=== PATIENT | male | born 1950 | race Caucasian/White ===

== ENCOUNTER 2016-09-02 09:07 | Emergency (ER) | payer MEDICARE, OTHER ==
[2016-09-02 09:22] VITALS: BP 149/83
[2016-09-02] MEDS ORDERED: KETOROLAC TROMETHAMINE 30 MG/ML VIAL IM ONE (11:01)
[2016-09-02] MEDS ORDERED: KETOROLAC TROMETHAMINE 30 MG/ML VIAL ONE (11:02)
[2016-09-02] MEDS ORDERED: ACETAMINOPHEN 325 MG TABLET ONE (11:08)
[2016-09-02] MEDS ORDERED: ACETAMINOPHEN 325 MG TABLET PO ONE (11:11)
--- NOTE | 2016-09-02 11:26 | ERNOTE ---
Upper Extremity HPI - Narrative Date of Service: 09/02/16 - General Time Seen by Provider: 09/02/16 10:10 Source: patient Exam Limitations: no limitations - Immun/Allergies/Home Medications Immunizations: IMMUNIZATION HX Immunizations Up to Date Yes History of Influenza Vaccine Yes Hx Pneumococcal Vaccination Yes Allergies/Adverse Reactions: Allergies Allergy/AdvReac Type Severity Reaction Status Date / Time Tetanus Vaccines & Toxoid Allergy Severe Swelling Verified 09/02/16 09:28 of Throat Home Medications: HOME MEDICATIONS Amitriptyline HCl [Elavil] 10 mg PO ACHS 09/02/16 [Last Taken Unknown] Diphenoxylate HCl/Atropine [Lomotil Tablet] 1 each PO TID 09/02/16 [Last Taken Unknown] Furosemide [Lasix] 40 mg PO DAILY 09/02/16 [Last Taken Unknown] Levothyroxine Sodium [Synthroid] 50 mcg PO DAILY 09/02/16 [Last Taken Unknown] Lisinopril [Zestril] 2.5 mg PO DAILY 09/02/16 [Last Taken Unknown] Pantoprazole Sodium [Protonix] 40 mg PO BID 09/02/16 [Last Taken Unknown] Pantoprazole Sodium [Protonix] 40 mg PO DAILY 09/02/16 [Last Taken Unknown] Sotalol HCl [Betapace] 120 mg PO BID 09/02/16 [Last Taken Unknown] Warfarin Sodium [Coumadin] 2.5 mg PO SUTUTHSA 09/02/16 [Last Taken Unknown] Warfarin Sodium [Coumadin] 5 mg PO MOWEFR 09/02/16 [Last Taken Unknown] Zolpidem Tartrate [Ambien] 5 mg PO HS 09/02/16 [Last Taken Unknown] metFORMIN HCL [Glucophage] 1,000 mg PO BID 09/02/16 [Last Taken Unknown] - History of Present Illness Narrative: multiple right shoulder dislocations. Recent Xray is negative from 08/31/2015 however pt has pain in right shoulder Review of Systems - Review of Systems Constitutional: Present: no symptoms reported Respiratory: Present: no symptoms reported Cardiology: Present: no symptoms reported - Patient's Past Medical History Patient History - Medical: Diabetes Type 2, GERD, Hypothyroidism Patient History - Cardiac/Respiratory: Bronchitis, Hypertension Patient History - Cancer: No Hx of Cancer Patient History - Surgical Procedures: Cholecystectomy Patient History - Other: None - Social History Living Situations: home Smoking Status: Former smoker Have you smoked in the past 12 months: No - Immunizations Immunizations Up to Date: Yes Hx Pneumococcal Vaccination: Yes History of Influenza Vaccine: Yes Physical Exam - Physical Exam General Appearance: Present: wd/wn, alert, no apparent distress Ears, Nose, Throat: Present: normal ENT inspection, hearing grossly normal Neck: Present: normal inspection, nontender Respiratory: Present: no respiratory distress, normal breath sounds, no accessory muscle use, chest nontender, lungs clear Cardiovascular/Chest: Present: regular rate, rhythm, no murmur, normal peripheral pulses Extremity Exam: Present: other - There is a visible superficial bursa which is ballotable on the patient's right shoulder. It is tense and tender. ED Progress - Vital Signs Patient's Vital Signs:: I have reviewed the patient's vital signs. Vital Signs: Vital Signs 09/02/16 09:18 Temperature 36.1 C L Pulse Rate 93 Respiratory 16 Rate Blood Pressure 149/83 O2 Sat by Pulse 96 Oximetry - Progress/Reassessment Chief Complaint: Shoulder Injury/Pain Plan - Plan Plan: Will make appointment for pt to see ortho tomorrow. Will place in sling and offer Tylenol as pt is on anticoagulants. Departure Clinical Impression: Bursitis of right shoulder - Departure Disposition: Home self-care Condition: Fair Instructions: Bursitis, [id number] Additional Instructions: Go see ortho tomorrow at 9:30 am please
== END 2016-09-02 11:25 | disposition home or self-care (01) ==
LOC: ER 09:07
DX: M75.51 Bursitis of right shoulder (principal); Z87.891 Personal history of nicotine dependence

== ENCOUNTER 2016-09-04 10:50 | Emergency (ER) | payer MEDICARE, OTHER ==
[2016-09-04 11:11] VITALS: BP 132/70
[2016-09-04] MEDS ORDERED: TRIAMCINOLONE ACETONIDE 40 MG/ML VIAL IJ ONE (11:30)
[2016-09-04] MEDS ORDERED: LIDOCAINE HCL/EPINEPHRINE 30 ML VIAL IJ ONE ×2 (11:32→11:49)
--- NOTE | 2016-09-04 11:35 | ERNOTE ---
Upper Extremity HPI - Narrative Date of Service: 09/04/16 - General Extremities Pain Location: shoulder: right Time Seen by Provider: 09/04/16 11:21 Source: patient Exam Limitations: no limitations - Immun/Allergies/Home Medications Immunizations: IMMUNIZATION HX Immunizations Up to Date Yes History of Influenza Vaccine Yes Hx Pneumococcal Vaccination Yes Allergies/Adverse Reactions: Allergies Allergy/AdvReac Type Severity Reaction Status Date / Time Tetanus Vaccines & Toxoid Allergy Severe Swelling Verified 09/04/16 11:11 of Throat Penicillins Allergy Verified 09/04/16 11:11 Home Medications: HOME MEDICATIONS Amitriptyline HCl [Elavil] 10 mg PO ACHS 09/02/16 [Last Taken Unknown] Diphenoxylate HCl/Atropine [Lomotil Tablet] 1 each PO TID 09/02/16 [Last Taken Unknown] Furosemide [Lasix] 40 mg PO DAILY 09/02/16 [Last Taken Unknown] Levothyroxine Sodium [Synthroid] 50 mcg PO DAILY 09/02/16 [Last Taken Unknown] Lisinopril [Zestril] 2.5 mg PO DAILY 09/02/16 [Last Taken Unknown] Pantoprazole Sodium [Protonix] 40 mg PO BID 09/02/16 [Last Taken Unknown] Pantoprazole Sodium [Protonix] 40 mg PO DAILY 09/02/16 [Last Taken Unknown] Sotalol HCl [Betapace] 120 mg PO BID 09/02/16 [Last Taken Unknown] Warfarin Sodium [Coumadin] 2.5 mg PO SUTUTHSA 09/02/16 [Last Taken Unknown] Warfarin Sodium [Coumadin] 5 mg PO MOWEFR 09/02/16 [Last Taken Unknown] Zolpidem Tartrate [Ambien] 5 mg PO HS 09/02/16 [Last Taken Unknown] metFORMIN HCL [Glucophage] 1,000 mg PO BID 09/02/16 [Last Taken Unknown] Hydrocodone/Acetaminophen [[place] 5-325 Tablet] 1 tab PO Q6H PRN #60 tab [Last Taken Unknown] Physical Therapy 1 unit .ROUTE DAILY 15 Days 09/04/16 [Last Taken Unknown] - History of Present Illness Narrative: About a month ago, he fell, injuring his right shoulder. Decreased ROM, pain, and swelling of entire right arm. Yesterday, omar Parks, drained some blood from his right shoulder. Today he is having more pain and less ROM again. Occurred: other Location of Incident: home Severity: moderate Method of Injury: Reports: fell Loss of Consciousness: Reports: no loss of consciousness Modifying Factors - (Improves): Reports: rest Modifying Factors - (Worsens): Reports: jarring, movement Associated Symptoms: Reports: weakness, loss of power (rt arm) Other Injuries: Reports: none Review of Systems - Review of Systems Constitutional: Present: no symptoms reported EYE: Present: no symptoms reported ENT: Present: no symptoms reported Respiratory: Present: no symptoms reported Cardiology: Present: no symptoms reported Gastrointestinal/Abdominal: Present: no symptoms reported Genitourinary: Present: no symptoms reported Musculoskeletal: Present: See HPI Skin: Present: no symptoms reported Neurological: Present: no symptoms reported Endocrine: Present: no symptoms reported Hematologic/Lymphatic: Present: no symptoms reported Psych: Present: no symptoms reported All Other Systems: All systems neg except as marked - Patient's Past Medical History Patient History - Medical: Diabetes Type 2, GERD, Hypothyroidism Patient History - Cardiac/Respiratory: Bronchitis, Hypertension Patient History - Cancer: No Hx of Cancer Patient History - Surgical Procedures: Cholecystectomy, Other - two left shoulder surgeries. Patient History - Other: None - Social History Living Situations: home - Immunizations Immunizations Up to Date: Yes Hx Pneumococcal Vaccination: Yes History of Influenza Vaccine: Yes Physical Exam - Physical Exam General Appearance: Present: wd/wn, alert, no apparent distress Eye Exam: Normal inspection: bilateral, PERRL: bilateral, EOMI: bilateral Ears, Nose, Throat: Present: normal ENT inspection Neck: Present: normal inspection Respiratory: Present: no respiratory distress, normal breath sounds Cardiovascular/Chest: Present: regular rate, rhythm, no murmur Gastrointestinal/Abdominal: Present: normal bowel sounds, nontender, nondistended, soft, no organomegaly Back Exam: Present: normal inspection Extremity Exam: Present: normal inspection, no edema, other - marked painful decreased rom right shoulder Neurological Exam: Present: alert, oriented, normal mood/affect Skin Exam: Present: normal color, warm/dry Lymphatic Exam: Present: no adenopathy ED Progress - Vital Signs Patient's Vital Signs:: I have reviewed the patient's vital signs. Vital Signs: Vital Signs 09/04/16 11:07 Temperature 36.5 C Pulse Rate 84 Respiratory 14 Rate Blood Pressure 132/70 O2 Sat by Pulse 95 Oximetry - Progress/Reassessment Chief Complaint: Shoulder Injury/Pain Progress:: Improved Procedures Complications: other - I injected his right shoulder in the usual fashion, tolerated well, no complications, pain improved. Departure Clinical Impression: Bursitis of right shoulder Right shoulder pain Qualifiers: Chronicity: acute Qualified Code(s): M25.511 - Pain in right shoulder - Departure Disposition: Home self-care Condition: Good Instructions: Shoulder Pain, [id number] Additional Instructions: Go to the [facility] physical therapy department with your prescription for physical therapy and set up your first physical therapy appt. Wear your sling as much as possible. In 2 days, call your doctor for an appt next week, to assure continued follow up and progress with your shoulder.
[2016-09-04] MEDS ORDERED: TRIAMCINOLONE ACETONIDE 40 MG/ML VIAL ONE (11:49)
== END 2016-09-04 12:24 | disposition home or self-care (01) ==
LOC: ER 10:50
PROC: 3E0U33Z Introduction of Anti-inflammatory into Joints, Percutaneous Approach (ICD-10-PCS; principal; 2016-09-04)
PROC: 3E0U3BZ Introduction of Anesthetic Agent into Joints, Percutaneous Approach (ICD-10-PCS; 2016-09-04)
DX: M75.51 Bursitis of right shoulder (principal); M25.511 Pain in right shoulder; E11.9 Type 2 diabetes mellitus without complications; K21.9 Gastro-esophageal reflux disease without esophagitis; E03.9 Hypothyroidism, unspecified; I10 Essential (primary) hypertension; Z79.01 Long term (current) use of anticoagulants

== ENCOUNTER 2017-08-19 20:42 | Emergency (ER) | payer MEDICARE, OTHER ==
[2017-08-19] MEDS ORDERED: NORMAL SALINE 1,000 ML IV ONE (21:10)
[2017-08-19 21:28] LABS: Hematocrit 32.3 % (42.0-52.0); Hemoglobin 10.9 gm/dL (13.5-18.0); Mean Cell Volume 92.6 fl (78-100); Mean Corpuscular Hemoglobin 31.2 pg (27-31); Mean Corpuscular Hgb Conc 33.7 g/dl (32-36); Mean Platelet Volume 10.4 fl (6.0-9.5); Neutrophil % 81.5 % (42-75.0); Red Blood Count 3.49 M/mm3 (4.7-6.0); Red Cell Distribution Width 13.9 % (11.5-14.0); White Blood Count 6.2 K/mm3 (4.0-10.5)
[2017-08-19 21:40] LABS: Prothrombin Time (Patient) 16.8 Seconds (9.0-11.0)
[2017-08-19 21:43] LABS: INR 1.67 INR (0.90-1.10); Partial Thrombolplastin Time 27.8 Seconds (24-32)
[2017-08-19 21:46] LABS: Albumin * 3.6 gm/dl (3.4-5.0); Anion Gap 13.4 mmol/L (6.8-13.8); BUN/Creatinine Ratio 22.1 (9.0-21.6); Bilirubin, Total 2.3 mg/dL (0.0-1.1); Ca. Corrected For Albumin 8.8 mg/dL (8.4-10.2); Calcium * 8.8 mg/dL (7.9-10.9); Carbon Dioxide 27.9 mmol/L (24-32.6); Potassium 4.3 mmol/L (3.4-4.6); Total Protein 7.7 gm/dL (6.2-8.2)
[2017-08-19 21:51] LABS: Troponin I 0.026 ng/ml (0.00-0.10)
[2017-08-19 21:52] LABS: Platelet Count 136 K/mm3 (150-450)
[2017-08-19 21:58] LABS: Urine Bilirubin 1 mg/dl (NEGATIVE); Urine Ketone 15 mg/dL (NEGATIVE); Urine Nitrite Negative (NEGATIVE); Urine Protein Negative (NEGATIVE); Urine Specific Gravity 1.015 SP.GR. (1.005-1.030); Urine Urobilinogen Normal (NORMAL)
[2017-08-19 22:08] LABS: Urine Appearance Clear; Urine Bacteria TRACE; Urine Blood 5 /ul (NEGATIVE); Urine Color Yellow; Urine RBC None Seen /hpf (0-5); Urine WBC None Seen /hpf (0-5)
[2017-08-19] MEDS ORDERED: DIATRIZOATE MEGLUMINE, SODIUM 30 ML BTL ONE (22:34)
[2017-08-19] MEDS ORDERED: DIATRIZOATE MEGLUMINE, SODIUM 30 ML BTL PO ONE (22:36)
[2017-08-20] MEDS ORDERED: ONDANSETRON 4 MG TAB.RAPDIS PO ONE (01:54)
--- NOTE | 2017-08-20 01:54 | ERNOTE ---
Neuro HPI ER Record Date of Service: 08/20/17 Presenting Symptoms: weakness, confusion, difficulty walking Time Seen by Provider: 08/19/17 21:07 Source: patient, family Exam Limitations: no limitations Immunizations: IMMUNIZATION HX Immunizations Up to Date Yes History of Influenza Vaccine Yes Hx Pneumococcal Vaccination No Allergies/Adverse Reactions: Allergies Allergy/AdvReac Type Severity Reaction Status Date / Time Tetanus Vaccines and Toxoid Allergy Severe Swelling Verified 08/19/17 21:12 [Tetanus Vaccines & Toxoid] of Throat codeine Allergy Unverified 08/19/17 21:12 Penicillins Allergy Verified 08/19/17 21:12 Home Medications: HOME MEDICATIONS Amitriptyline HCl [Elavil] 10 mg PO ACHS 09/02/16 [Last Taken Unknown] Diphenoxylate HCl/Atropine [Lomotil Tablet] 1 each PO TID 09/02/16 [Last Taken Unknown] Furosemide [Lasix] 40 mg PO DAILY 09/02/16 [Last Taken Unknown] Levothyroxine Sodium [Synthroid] 50 mcg PO DAILY 09/02/16 [Last Taken Unknown] Lisinopril [Zestril] 2.5 mg PO DAILY 09/02/16 [Last Taken Unknown] Pantoprazole Sodium [Protonix] 40 mg PO BID 09/02/16 [Last Taken Unknown] Pantoprazole Sodium [Protonix] 40 mg PO DAILY 09/02/16 [Last Taken Unknown] Sotalol HCl [Betapace] 120 mg PO BID 09/02/16 [Last Taken Unknown] Warfarin Sodium [Coumadin] 2.5 mg PO SUTUTHSA 09/02/16 [Last Taken Unknown] Warfarin Sodium [Coumadin] 5 mg PO MOWEFR 09/02/16 [Last Taken Unknown] Zolpidem Tartrate [Ambien] 5 mg PO HS 09/02/16 [Last Taken Unknown] metFORMIN HCL [Glucophage] 1,000 mg PO BID 09/02/16 [Last Taken Unknown] HYDROcodone/ACETAMINOPHEN [[place] 5-325 Tablet] 1 tab PO Q6H PRN #60 tab [Last Taken Unknown] Physical Therapy 1 unit .ROUTE DAILY 15 Days 09/04/16 [Last Taken Unknown] Diphenoxylate HCl/Atrop Sulf [Lomotil] 2.5 mg PO QID PRN #40 tab 08/20/17 [Last Taken Unknown] Ondansetron [Zofran Odt] 4 mg PO Q6H PRN #20 tab 08/20/17 [Last Taken Unknown] - History of Present Illness Narrative: PATIENT NOTED BY SON TO HAVE CONFUSION. gave orange juice and sugar and symptoms resolved , known hx of diabetes, has had similair symptoms before Onset: cannot confirm onset Severity: moderate Context: other - no injury reported - Character of Deficits New weakness: Present: general (diffuse) Altered sensation: Present: other - none Additional Deficits: Present: vision problems, impaired speech, decrease ability to stand Baseline Cognition: Present: alert, oriented x 4 Baseline Gait: Present: walks w/o assistance Associated Symptoms: Reports: altered mental status, trouble concentrating Review of Systems - Narrative Narrative: past hx of diabetes - Review of Systems Constitutional: Present: See HPI, weakness, fatigue, malaise EYE: Present: blurred vision ENT: Present: no symptoms reported Respiratory: Present: no symptoms reported Cardiology: Present: no symptoms reported Gastrointestinal/Abdominal: Present: nausea, vomiting, diarrhea, other - hasa had diarrhea with vomiting for last several days Genitourinary: Present: no symptoms reported Musculoskeletal: Present: no symptoms reported Skin: Present: no symptoms reported Neurological: Present: dizziness/light-headedness, weakness Endocrine: Present: no symptoms reported Hematologic/Lymphatic: Present: no symptoms reported Psych: Present: no symptoms reported All Other Systems: All systems neg except as marked - Narrative Narrative: past medical hx of dibetes , pacemaker - Patient's Past Medical History Patient History - Medical: Diabetes Type 2, Renal Disease Patient History - Cardiac/Respiratory: Coronary Heart Disease Patient History - Cancer: No Hx of Cancer Patient History - Surgical Procedures: Cholecystectomy, Other Patient History - Other: None - Family History Family History:: no untoward family reactions to anesthesia, no familial bleeding tendencies, no family history of clotting disorders, no family history of premature - Social History Living Situations: home Abuse History: No History of abuse Psych History: No pertinent hx Does anyone smoke in the home?: No Smoking Status: Former smoker Have you smoked in the past 12 months: No Smoking Stop Date: 08/01/14 Patient requests Smoking Cessation Consult: No Initiate information on Smoking Cessation: No Alcohol Use: none Drug Use: none - Immunizations Immunizations Up to Date: Yes Hx Pneumococcal Vaccination: No History of Influenza Vaccine: Yes Physical Exam - Physical Exam General Appearance: Present: mild distress Head Exam: Present: normal inspection, no evidence of injury Eye Exam: Normal inspection: bilateral, PERRL: bilateral, EOMI: bilateral Ears, Nose, Throat: Present: normal ENT inspection Neck: Present: normal inspection, nontender Respiratory: Present: no respiratory distress, normal breath sounds, no accessory muscle use, chest nontender, lungs clear Cardiovascular/Chest: Present: regular rate, rhythm, no murmur, normal peripheral pulses Peripheral Pulses: N=norm/S=strong/W=weak/B=bound/A=absent: Carotid (R): Normal , Carotid (L): Normal, Radial (R): Normal, Radial (L): Normal, Femoral (R): Normal, Femoral (L): Normal Gastrointestinal/Abdominal: Present: normal bowel sounds, nontender, nondistended, soft, no organomegaly Back Exam: Present: normal inspection, normal range of motion, no CVA tenderness , no vertebral tenderness Extremity Exam: Present: normal inspection, non-tender, normal range of motion, no edema Neurological Exam: Present: alert, oriented, normal mood/affect, no motor/ sensory deficits DTR: N=norm/NB=norm/brisk/A=abs/DD=dull/dimin/HC=hyperactive: Bicep (R): Normal , Bicep (L): Normal, Tricep (R): Normal, Tricep (L): Normal, Knee (R): Normal, Knee (L): Normal, Ankle (R): Normal, Ankle (L): Normal Skin Exam: Present: normal color, warm/dry Lymphatic Exam: Present: no adenopathy Sherine Coma Scale - Assess Eye Opening: Spontaneous Motor: Obeys Commands Verbal: Oriented - Total Coma Scale Total: 15 ED Progress - Date and Time Seen: Date and Time: 08/20/17 01:47 patient has been symptom free since prior to arrival - Results and Orders Patient's Lab Results:: I have reviewed the patient's lab results. - Vital Signs Patient's Vital Signs:: I have reviewed the patient's vital signs. Vital Signs: Vital Signs 08/19/17 08/19/17 08/19/17 20:57 21:13 21:22 Temperature 37.4 C Pulse Rate 90 90 92 Respiratory 16 17 Rate Blood Pressure 135/68 132/75 O2 Sat by Pulse 93 92 Oximetry 08/19/17 08/19/17 08/19/17 21:36 21:52 22:29 Temperature Pulse Rate 90 91 92 Respiratory 21 H 26 H 19 Rate Blood Pressure 122/72 122/72 137/68 O2 Sat by Pulse 92 95 94 Oximetry 08/19/17 08/19/17 08/19/17 22:36 22:51 23:06 Temperature Pulse Rate 91 95 94 Respiratory 22 H 22 H 20 Rate Blood Pressure 124/63 140/76 122/64 O2 Sat by Pulse 93 95 92 Oximetry 08/19/17 08/19/17 08/19/17 23:29 23:36 23:50 Temperature Pulse Rate 98 87 96 Respiratory 20 15 Rate Blood Pressure 126/71 143/71 129/73 O2 Sat by Pulse 86 L 95 89 L Oximetry 08/20/17 08/20/17 08/20/17 00:05 00:34 01:15 Temperature Pulse Rate 98 95 105 H Respiratory 28 H 19 Rate Blood Pressure 144/85 137/78 132/71 O2 Sat by Pulse 95 92 91 Oximetry - EKG EKG: NSR, other - first degree av block EKG read: Interp. by me - X-Ray X-Ray #2 X-Ray: abdomen - no acut e process abdomen no acute process ct head no acute process, ct abdomen no acute process Interpretation: Discd w/ radiologist - Progress/Reassessment Chief Complaint: Altered Mental Status Progress:: Improved - Transfer of Care Expected Disposition: Discharge Plan - Plan Plan: disccussed labs and x-rays with patient, patient request dismissal Departure Clinical Impression: Hypoglycemia, Dehydration, Hepatitis, Pancreatitis - Departure Disposition: Home self-care Condition: Fair Instructions: Acute Pancreatitis, Liver Failure, Rehydration, Adult Prescriptions: Diphenoxylate HCl/Atrop Sulf [Lomotil] 2.5 mg PO QID PRN #40 tab PRN Reason: Diarrhea Ondansetron [Zofran Odt] 4 mg PO Q6H PRN #20 tab PRN Reason: Nausea
[2017-08-20] MEDS ORDERED: DIPHENOXYLATE HCL/ATROP SULF 2.5 MG TABLET PO ONE (01:55)
[2017-08-20 02:16] VITALS: BP 133/88
== END 2017-08-20 02:00 | disposition home or self-care (01) ==
LOC: ER 20:42
DX: E11.649 Type 2 diabetes mellitus with hypoglycemia without coma (principal); Z79.84 Long term (current) use of oral hypoglycemic drugs; E86.0 Dehydration; K75.9 Inflammatory liver disease, unspecified; K85.90 Acute pancreatitis without necrosis or infection, unspecified; I25.2 Old myocardial infarction; N28.9 Disorder of kidney and ureter, unspecified

== ENCOUNTER 2017-09-02 14:13 | Emergency (ER) | payer MEDICARE, OTHER ==
--- NOTE | 2017-09-02 14:58 | ERNOTE ---
Medical Problem HPI - Narrative Date of Service: 09/02/17 - General Chief Complaint: General Assessment Time Seen by Provider: 09/02/17 14:33 Source: patient Exam Limitations: clinical condition - Immun/Allergies/Home Medications Immunizations: IMMUNIZATION HX Immunizations Up to Date Yes History of Influenza Vaccine Yes Hx Pneumococcal Vaccination No Allergies/Adverse Reactions: Allergies Tetanus Vaccines and Toxoid [Tetanus Vaccines & Toxoid] Allergy (Severe, Verified 09/02/17 14:31) Swelling of Throat codeine Allergy (Verified 09/02/17 14:31) Penicillins Allergy (Verified 09/02/17 14:31) Home Medications: HOME MEDICATIONS Amitriptyline HCl [Elavil] 10 mg PO HS 09/02/16 [Last Taken Unknown] Furosemide [Lasix] 40 mg PO DAILY 09/02/16 [Last Taken Unknown] Levothyroxine Sodium [Synthroid] 50 mcg PO DAILY 09/02/16 [Last Taken Unknown] Lisinopril [Zestril] 2.5 mg PO DAILY 09/02/16 [Last Taken Unknown] Pantoprazole Sodium [Protonix] 40 mg PO DAILY 09/02/16 [Last Taken Unknown] Sotalol HCl [Betapace] 120 mg PO BID 09/02/16 [Last Taken Unknown] Warfarin Sodium [Coumadin] 2.5 mg PO SUTUTHSA 09/02/16 [Last Taken Unknown] Warfarin Sodium [Coumadin] 5 mg PO MOWEFR 09/02/16 [Last Taken Unknown] Zolpidem Tartrate [Ambien] 5 mg PO HS 09/02/16 [Last Taken Unknown] metFORMIN HCL [Glucophage] 1,000 mg PO BID 09/02/16 [Last Taken Unknown] HYDROcodone/ACETAMINOPHEN [[place] 5-325 Tablet] 1 tab PO Q6H PRN #60 tab [Last Taken Unknown] Physical Therapy 1 unit .ROUTE DAILY 15 Days 09/04/16 [Last Taken Unknown] Diphenoxylate HCl/Atrop Sulf [Lomotil] 2.5 mg PO QID PRN #40 tab 08/20/17 [Last Taken Unknown] Ondansetron [Zofran Odt] 4 mg PO Q6H PRN #20 tab 08/20/17 [Last Taken Unknown] - History of Present History Narrative: Pt. comes in with c/o dizziness and pacemaker shocking him twice approximately 6 hours ago. Pt. states that he has been confused since and has some mild SOB, and CP since. Pt. was recently seen for dehydration a week ago and sent home after having fluids resuscitated. Pt. denies any recent illnesses, fever, NVD, cough, alleviating factors or aggravating factors. Timing: intermittent, resolved prior to arrival Severity: mild Modifying Factors - (Improves): Present: other - none Modifying Factors - (Worsens): Present: other - none Review of Systems - Review of Systems Constitutional: Present: no symptoms reported. Absent: fever, chills, weakness , fatigue, malaise EYE: Present: no symptoms reported ENT: Present: no symptoms reported. Absent: nose pain, nose congestion, nasal drainage, sore throat Respiratory: Present: no symptoms reported, shortness of breath. Absent: cough , wheezing Cardiology: Present: chest pain, other - IVCD activation x 2. Absent: palpitations Gastrointestinal/Abdominal: Present: no symptoms reported. Absent: nausea, vomiting, diarrhea, abdominal pain Genitourinary: Present: no symptoms reported. Absent: frequency, decreased urinary output Musculoskeletal: Present: no symptoms reported. Absent: back pain, neck pain, joint pain Skin: Present: no symptoms reported. Absent: rash, change in hair/nails Neurological: Present: dizziness/light-headedness. Absent: headache, numbness, tingling Endocrine: Present: no symptoms reported Hematologic/Lymphatic: Present: no symptoms reported Psych: Present: no symptoms reported All Other Systems: All systems neg except as marked - Patient's Past Medical History Patient History - Medical: Diabetes Type 2, Renal Disease Patient History - Cardiac/Respiratory: Coronary Heart Disease Patient History - Cancer: No Hx of Cancer Patient History - Surgical Procedures: Cholecystectomy, Other Patient History - Other: None - Social History Living Situations: home Abuse History: No History of abuse Psych History: No pertinent hx Alcohol Use: none Drug Use: none - Immunizations Immunizations Up to Date: Yes Hx Pneumococcal Vaccination: No History of Influenza Vaccine: Yes Physical Exam - Physical Exam General Appearance: Present: wd/wn, alert, no apparent distress Head Exam: Present: normal inspection, no evidence of injury, no tenderness w palpation Eye Exam: Normal inspection: bilateral, PERRL: bilateral, EOMI: bilateral Ears, Nose, Throat: Present: normal ENT inspection, normal pharynx Neck: Present: normal inspection, nontender, supple, full range of motion. 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 Absent: pallor, skin rash ED Progress - Date and Time Seen: Date and Time: 09/02/17 14:[address] [facility] to interrogate pacemaker 09/02/17 15:07 ICD rf test technician returned call with ETA of around 2 hours 09/02/17 17:31 Discussed with ICD tech who reports that upon interrogation pt. is noted to have atrial tachycardia and pt. shock rate is set at 130 and pt got up to 133 with activity which caused the ICD to fire. This can be dangerous for pt. if it fires when not in a ventricular arrhythmia as it is odd that an atrial arrhythmia of hr less than 170 wi=ould trigger an arrythmia especially when the interrogation report notes that the ICD is only to fire with ventricular rate greater than 171, so will consult his EP physician plan consultant. 09/02/17 18:[address] Gustafson who is plan consultant for pt. 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 taken up to [facility] to be seen by someone from his office after being observed overnight as he feels that his ICD settings may need changed as it is inappropriate for his ICD to fire if he is having nicci atrial arrhythmias with a HR of 130. - Results and Orders Patient's Lab Results:: I have reviewed the patient's lab results. Results and Orders: Abnormal Lab Results 09/02/17 09/02/17 Range/Units 14:57 14:57 RBC 3.77 L (4.7-6.0) M/mm3 Hgb 11.8 L (13.5-18.0) gm/dL Hct 35.5 L (42.0-52.0) % MCH 31.3 H (27-31) pg MPV 9.7 H (6.0-9.5) fl Lymphocytes % 17.6 L (20-51) % Monocytes % 13.4 H (0.0-9) % Lymphocytes # 0.7 L (1.5-3.5) k/mm3 BUN 28 H (6-23) mg/dL Creatinine 1.43 H (0.4-1.4) mg/dL Est GFR (Non-Af Amer) 53 L (60-130) mL/min Random Glucose 148 H (70-110) mg/dL B-Natriuretic Peptide 5074 H (5-350) pg/mL - Vital Signs Patient's Vital Signs:: I have reviewed the patient's vital signs. Vital Signs: Vital Signs 09/02/17 09/02/17 14:25 14:34 Temperature 36.2 C L Pulse Rate 65 65 Respiratory 12 12 Rate Blood Pressure 114/44 102/57 O2 Sat by Pulse 98 97 Oximetry - EKG EKG: other - Atrial Paced, Inferior ischemia unchanged from previous EKG read: Interp. by me - X-Ray X-Ray #1 X-Ray: chest Interpretation: Reviewed by me X-ray Comments: Technique: Chest PA Lateral * Findings: Reidentified left-sided cardiac pacemaker. Reidentified cardiomegaly. Chronic granulomatous change identified. Hyperinflation identified. Chronic parenchymal scarring identified. No pneumothorax. No effusions. IMPRESSION: 1. Chronic cardiomegaly. Electronically signed by Marquise Leon M.D.. - Progress/Reassessment Chief Complaint: General Assessment Progress:: Unchanged Departure Clinical Impression: Dehydration, Renal insufficiency Arrhythmia Qualifiers: Arrhythmia type: other cardiac arrhythmia Qualified Code(s): I49.8 - Other specified cardiac arrhythmias ICD (implantable cardioverter-defibrillator) malfunction Qualifiers: Encounter type: initial encounter Qualified Code(s): T82.118A - Breakdown ( mechanical) of other cardiac electronic device, initial encounter - Departure Disposition: [facility] Condition: Serious
[2017-09-02 15:03] LABS: Hematocrit 35.5 % (42.0-52.0); Hemoglobin 11.8 gm/dL (13.5-18.0); Mean Cell Volume 94.2 fl (78-100); Mean Corpuscular Hemoglobin 31.3 pg (27-31); Mean Corpuscular Hgb Conc 33.2 g/dl (32-36); Mean Platelet Volume 9.7 fl (6.0-9.5); Neutrophil # 2.7 K/mm3 (1.3-6.0); Neutrophil % 66.1 % (42-75.0); Platelet Count 156 K/mm3 (150-450); Red Blood Count 3.77 M/mm3 (4.7-6.0); Red Cell Distribution Width 13.7 % (11.5-14.0)
[2017-09-02 15:22] LABS: Albumin * 3.6 gm/dl (3.4-5.0); Anion Gap 7.8 mmol/L (6.8-13.8); BUN/Creatinine Ratio 19.6 (9.0-21.6); Bilirubin, Total 1.1 mg/dL (0.0-1.1); Ca. Corrected For Albumin 8.7 mg/dL (8.4-10.2); Calcium * 8.7 mg/dL (7.9-10.9); Carbon Dioxide 31.5 mmol/L (24-32.6); Potassium 4.3 mmol/L (3.4-4.6); Total Protein 7.7 gm/dL (6.2-8.2)
[2017-09-02 15:37] LABS: Troponin I 0.06 ng/ml (0.00-0.10)
[2017-09-02] MEDS ORDERED: NORMAL SALINE 500 ML IV ONE (15:40)
[2017-09-02 15:46] LABS: Urine Bilirubin Negative (NEGATIVE); Urine Blood Negative /ul (NEGATIVE); Urine Ketone Negative (NEGATIVE); Urine Nitrite Negative (NEGATIVE); Urine Protein Negative (NEGATIVE); Urine Specific Gravity 1.015 SP.GR. (1.005-1.030); Urine Urobilinogen Normal (NORMAL); Urine pH 5.5 pH (5.0-7.0)
[2017-09-02 15:51] LABS: Urine Appearance Clear; Urine Bacteria TRACE; Urine Color Yellow; Urine RBC None Seen /hpf (0-5); Urine WBC None Seen /hpf (0-5)
[2017-09-02 19:04] VITALS: BP 112/68
== END 2017-09-02 19:15 | disposition short-term general hospital (02) ==
LOC: ER 14:13
DX: I49.8 Other specified cardiac arrhythmias (principal); N28.9 Disorder of kidney and ureter, unspecified; E86.0 Dehydration; T82.118A Breakdown (mechanical) of other cardiac electronic device, initial encounter; Z79.01 Long term (current) use of anticoagulants; E11.9 Type 2 diabetes mellitus without complications; Z95.0 Presence of cardiac pacemaker

== ENCOUNTER 2018-12-18 09:28 | Observation (INO) ==
[2018-12-18 10:56] LABS: Hematocrit 35.6 % (42.0-52.0); Mean Cell Volume 101.1 fl (78-100); Mean Corpuscular Hemoglobin 31.3 pg (27-31); Mean Corpuscular Hgb Conc 30.9 g/dl (32-36); Mean Platelet Volume 9.9 fl (8-11.3); Neutrophil # 1.9 K/mm3 (1.3-6.0); Neutrophil % 60.6 % (42-75.0); Platelet Count 129 K/mm3 (150-450); Red Blood Count 3.52 M/mm3 (4.7-6.0); Red Cell Distribution Width 15.5 % (11.5-14.0); White Blood Count 3.2 K/mm3 (4.0-10.5)
[2018-12-18 11:00] LABS: INR 1.43 INR (0.92-1.08)
[2018-12-18 11:08] LABS: ALT 21 U/L (19-67); AST 28 U/L (0-48); Albumin * 3.4 gm/dl (3.4-5.0); Alkaline Phosphatase * 86 U/L (50-170); Anion Gap 14.4 mmol/L (6.8-13.8); BUN/Creatinine Ratio 15.6 (9.0-21.6); Bilirubin, Total 0.9 mg/dL (0.0-1.1); Blood Urea Nitrogen 28 mg/dL (6-23); Ca. Corrected For Albumin 8.9 mg/dL (8.4-10.2); Calcium * 8.7 mg/dL (7.9-10.9); Carbon Dioxide 28.2 mmol/L (24-32.6); Chloride 102 mmol/L (97-106); Glucose * 188 mg/dL (70-110); Potassium 4.6 mmol/L (3.4-4.6); Salicylate Less than 2.8 mg/dL (2.8-20.0); Sodium 140 mmol/L (132-142); Total Protein 7.7 gm/dL (6.2-8.2)
[2018-12-18 11:28] LABS: Urine Bilirubin Negative (NEGATIVE); Urine Blood Negative /ul (NEGATIVE); Urine Ketone Negative (NEGATIVE); Urine Nitrite Negative (NEGATIVE); Urine Protein Negative (NEGATIVE); Urine Urobilinogen Normal (NORMAL); Urine pH 5.5 pH (5.0-7.0)
[2018-12-18 11:29] LABS: Troponin I 0.064 ng/mL (0.00-0.10)
[2018-12-18 11:31] LABS: TSH * 4.922 uIU/mL (0.358-3.74)
[2018-12-18 11:37] LABS: Urine Appearance Clear (CLEAR); Urine Bacteria None Seen; Urine Color Yellow; Urine RBC None Seen /hpf (0-5); Urine WBC None Seen /hpf (0-5)
[2018-12-18 11:47] LABS: Cocaine Ur Negative (NEGATIVE); Urine Barbiturate Negative (NEGATIVE); Urine Benzodiazepines Negative (NEGATIVE); Urine Opiates Negative (NEGATIVE); Urine PCP Negative (NEGATIVE); Urine THC Negative (NEGATIVE)
--- NOTE | 2018-12-18 13:46 | ERNOTE ---
Psychological HPI - Date Date of Service: 12/18/18 - General Chief Complaint: Psychiatric Problem Source: Reports: patient, family, RN/MD, RN notes reviewed - Immun/Allergies/Home Medications Allergies/Adverse Reactions: Allergies Tetanus Vaccines and Toxoid [Tetanus Vaccines & Toxoid] Allergy (Severe, Verified 12/03/18 19:42) Swelling of Throat codeine Allergy (Verified 12/03/18 19:42) Penicillins Allergy (Verified 12/03/18 19:42) Home Medications: HOME MEDICATIONS Amitriptyline HCl [Elavil] 20 mg PO HS 09/02/16 [Last Taken 11/06/17] Furosemide [Lasix] 30 mg PO DAILY 09/02/16 [Last Taken 11/07/17] Levothyroxine Sodium [Synthroid] 50 mcg PO DAILY 09/02/16 [Last Taken 11/07/17] Warfarin Sodium [Coumadin] 2.5 mg PO SUTUTHSA 09/02/16 [Last Taken 11/06/17] Warfarin Sodium [Coumadin] 5 mg PO MOWEFR 09/02/16 [Last Taken 11/04/17] Zolpidem Tartrate [Ambien] 5 mg PO HS PRN 09/02/16 [Last Taken 11/06/17] metFORMIN HCL [Glucophage] 1,000 mg PO BID 09/02/16 [Last Taken 11/07/17] Albuterol Sulfate [Proair Hfa] 2 puff IH QID PRN 11/09/17 [Last Taken Unknown] Ca/D3/Mag Ox/Zinc/Traffic Agent/Az/Bor [Calcium 600+D3 Plus Caplet] 1 each PO BID 11/09/17 [Last Taken Unknown] Diphenoxylate HCl/Atrop Sulf [Lomotil] 2 tab PO QID PRN 11/09/17 [Last Taken Unknown] Finasteride [Proscar] 5 mg PO QAM 11/09/17 [Last Taken 11/07/17] Metoprolol Tartrate [Lopressor] 50 mg PO BID 11/09/17 [Last Taken 11/07/17] Tamsulosin HCl 0.4 mg PO HS 11/09/17 [Last Taken 11/06/17] Fluticasone Propion/Salmeterol [Advair 250-50 Diskus] 1 puff INHALATION BID 12/18/18 [Last Taken Unknown] Glimepiride [Amaryl] 2 mg PO DAILY 12/18/18 [Last Taken Unknown] Magnesium Gluconate 250 mg PO BID 12/18/18 [Last Taken Unknown] Promethazine HCl [Phenergan (Promethazine)] 25 mg PO BID PRN 12/18/18 [Last Taken Unknown] Ranitidine HCl [Zantac] 300 mg PO HS 12/18/18 [Last Taken Unknown] Ursodiol 500 mg PO HS 12/18/18 [Last Taken Unknown] - History of Present Illness Time Seen by Provider: 12/18/18 10:27 Medical History (Updated 12/18/18 @ 13:46 by ABDIRASHID Wilkerson) COPD (chronic obstructive pulmonary disease) Hx of cardiac pacemaker Hypertension Pacemaker Surgical History: Surgical History (Updated 12/18/18 @ 13:46 by ABDIRASHID Wilkerson) History of tonsillectomy and adenoidectomy Hx of appendectomy Hx of cholecystectomy Hx of rotator cuff surgery Social History: Preferred Language Persian Do you have any roman catholic or No cultural preference? Smoking Status Former smoker Have you smoked in the past 12 No months Do you dip or chew tobacco No Abuse History No History of abuse Psych History No pertinent hx Alcohol Use none Drug Use none No Social History Section defined Progress - Vital Signs Vital Signs: Vital Signs 12/18/18 10:13 Temperature 36.7 C Pulse Rate 80 Respiratory Rate 16 Blood Pressure 134/74 O2 Sat by Pulse Oximetry 97 - Progress/Reassessment Chief Complaint: Psychiatric Problem Time Seen by Provider: 12/18/18 10:27
--- NOTE | 2018-12-18 15:15 | ERNOTE ---
Medical Problem HPI - Narrative Date of Service: 12/18/18 - General Chief Complaint: Psychiatric Problem Time Seen by Provider: 12/18/18 10:27 Source: patient Exam Limitations: other - confusion - Immun/Allergies/Home Medications Immunizations: IMMUNIZATION HX Immunizations Up to Date Yes History of Influenza Vaccine No Hx Pneumococcal Vaccination No Allergies/Adverse Reactions: Allergies Tetanus Vaccines and Toxoid [Tetanus Vaccines & Toxoid] Allergy (Severe, Verified 12/03/18 19:42) Swelling of Throat codeine Allergy (Verified 12/03/18 19:42) Penicillins Allergy (Verified 12/03/18 19:42) Home Medications: HOME MEDICATIONS Amitriptyline HCl [Elavil] 20 mg PO HS 09/02/16 [Last Taken 11/06/17] Furosemide [Lasix] 30 mg PO DAILY 09/02/16 [Last Taken 11/07/17] Levothyroxine Sodium [Synthroid] 50 mcg PO DAILY 09/02/16 [Last Taken 11/07/17] Warfarin Sodium [Coumadin] 2.5 mg PO SUTUTHSA 09/02/16 [Last Taken 11/06/17] Warfarin Sodium [Coumadin] 5 mg PO MOWEFR 09/02/16 [Last Taken 11/04/17] Zolpidem Tartrate [Ambien] 5 mg PO HS PRN 09/02/16 [Last Taken 11/06/17] metFORMIN HCL [Glucophage] 1,000 mg PO BID 09/02/16 [Last Taken 11/07/17] Albuterol Sulfate [Proair Hfa] 2 puff IH QID PRN 11/09/17 [Last Taken Unknown] Ca/D3/Mag Ox/Zinc/Sales Record Clerk/Az/Bor [Calcium 600+D3 Plus Caplet] 1 each PO BID 11/09/17 [Last Taken Unknown] Diphenoxylate HCl/Atrop Sulf [Lomotil] 2 tab PO QID PRN 11/09/17 [Last Taken Unknown] Finasteride [Proscar] 5 mg PO QAM 11/09/17 [Last Taken 11/07/17] Metoprolol Tartrate [Lopressor] 50 mg PO BID 11/09/17 [Last Taken 11/07/17] Tamsulosin HCl 0.4 mg PO HS 11/09/17 [Last Taken 11/06/17] Fluticasone Propion/Salmeterol [Advair 250-50 Diskus] 1 puff INHALATION BID 12/18/18 [Last Taken Unknown] Glimepiride [Amaryl] 2 mg PO DAILY 12/18/18 [Last Taken Unknown] Magnesium Gluconate 250 mg PO BID 12/18/18 [Last Taken Unknown] Promethazine HCl [Phenergan (Promethazine)] 25 mg PO BID PRN 12/18/18 [Last Taken Unknown] Ranitidine HCl [Zantac] 300 mg PO HS 12/18/18 [Last Taken Unknown] Ursodiol 500 mg PO HS 12/18/18 [Last Taken Unknown] - History of Present History Narrative: The patient is brought to the ED for evaluation. He by report has been sitting in the entry area of the hospital for hours today. When asked why he was here he thought he was to see the Manager Of Engineering but he related that he had ridden his horse in and had a bag of kittens but this was a bag of paperwork. He denies physical symptoms. No CP or SOB. No head injury. Timing: unsure Modifying Factors - (Improves): Present: other - nothing Modifying Factors - (Worsens): Present: other - nothing Review of Systems - Review of Systems Constitutional: Absent: fever Respiratory: Absent: shortness of breath Cardiology: Absent: chest pain Gastrointestinal/Abdominal: Absent: abdominal pain Neurological: Absent: headache, weakness All Other Systems: All systems neg except as marked Medical History (Updated 12/18/18 @ 13:46 by ABDIRASHID Wilkerson) COPD (chronic obstructive pulmonary disease) Hx of cardiac pacemaker Hypertension Pacemaker Surgical History: Surgical History (Updated 12/18/18 @ 13:46 by ABDIRASHID Wilkerson) History of tonsillectomy and adenoidectomy Hx of appendectomy Hx of cholecystectomy Hx of rotator cuff surgery Social History: Preferred Language Kyrgyz Do you have any congregation or No cultural preference? Smoking Status Former smoker Have you smoked in the past 12 No months Do you dip or chew tobacco No Abuse History No History of abuse Psych History No pertinent hx Alcohol Use none Drug Use none No Social History Section defined Physical Exam - Physical Exam General Appearance: Present: alert, no apparent distress Head Exam: Present: normal inspection, no evidence of injury Eye Exam: Normal inspection: bilateral, PERRL: bilateral Ears, Nose, Throat: Present: normal ENT inspection Neck: Present: normal inspection Respiratory: Present: no respiratory distress, normal breath sounds, no accessory muscle use, lungs clear Cardiovascular/Chest: Present: regular rate, rhythm, normal peripheral pulses Gastrointestinal/Abdominal: Present: normal bowel sounds, nontender, nondistended, soft Back Exam: Absent: CVA tenderness (R), CVA tenderness (L) Extremity Exam: Present: normal inspection, normal range of motion Neurological Exam: Present: alert, other - cannot tell me the president or year/month but he is very evasive to this type of questioning. No SI or HI. Skin Exam: Present: normal color, warm/dry Progress - Results and Orders Patient's Lab Results:: I have reviewed the patient's lab results. - Vital Signs Patient's Vital Signs:: I have reviewed the patient's vital signs. Vital Signs: Vital Signs 12/18/18 10:13 Temperature 36.7 C Pulse Rate 80 Respiratory Rate 16 Blood Pressure 134/74 O2 Sat by Pulse Oximetry 97 - EKG EKG #1 EKG read: Interp. by me EKG Comments: Paced, rate 77. Non-specific, no clear STEMI - X-Ray X-Ray #1 X-Ray: chest Interpretation: Interp. by me X-ray Comments: I reviewed official radiology report - CT/Ultrasound CT/Ultrasound Narrative: I reviewed official radiology repot for head CT - Progress/Reassessment Chief Complaint: Psychiatric Problem Progress Note-Subjective: 12/18/18 15:12 Patient's ex- arrived and relates that he is more confused than normal. Throughout his stay he seems less confused but was still too confused to be by himself. He is agreeable to observation. D/W Dr Cisneros who will admit. I discussed warning signs and reasons to return as well as the need for close f/u. Departure Clinical Impression: Change in mental status - Departure Disposition: Still a patient Condition: Stable
--- NOTE | 2018-12-18 15:33 | CONS ---
[facility] - General Date of Service: 12/18/18 Narrative: Patient is a 68 year old male who presented to emergency department with altered mental status. Patient was reportedly walking around [facility] attempting to reschedule some type of appointment but could not remember why he was there. Patient reportedly told a staff member that he rode here on a horse. Patient states he drove himself to the hospital and doesnt know why he would have told somebody that he rode a horse here. He states he knows he is at [facility] but was unable to identify what department. When informed that he was in the emergency department, patient states that he should have known that and he just wasnt paying attention when somebody walked him here. Patient states he is ready to get his papers and get out of here because he has an appointment to attend. When asked what appointment he is supposed to be attending, patient states he is supposed to have an echo performed today. Patients ex-, Lisa, reminds patient that his echo is scheduled for tomorrow. He verbalizes understanding then later states that he needs to get out of her so he can get his echo performed today. Barrett states he was in the hospital earlier this month for heart problems. Per past record, patient had a syncopal episode and it was then found that his pacemaker was not functioning correctly; patient was transferred to [facility] at his request. Patient states he has been feeling good. He notes that he has been having difficulty keeping track of appointments in the last few months and states he has trouble remembering things when he has a lot of appointments at once. He states his primary care provider is Elicia Giron in [place], [place]. He reports he last saw Elicia approximately one month ago. He states he had an appointment with her last Tuesday but when he showed up to her office, all of the doors were locked and he is upset that they made an appointment with him and then the office was closed. Barrett denies having a history of depression, anxiety, or other mental illness. He denies experiencing hallucinations. When asked why he takes amitriptyline, he initially states that he takes it because his doctor tells him to take it but later states that he believes he takes it to help him sleep. He is unable to tell me how long he has had insomnia. He did say that he has had a sleep study performed in the past but states, it didnt do nothing for me. He states he only takes Ambien if he needs it and that is most nights. He states he has been taking Ambien and amitriptyline for several years and he has not had any recent changes in the doses of amitriptyline or Ambien. He denies feeling depressed or anxious. He repeatedly states that he just wants his papers so he can leave. Barrett states he is sleeping well at night. He states his appetite is good. He denies alcohol use or illicit drug use. He denies suicidal ideation or homicidal ideation. Barrett states he lives in a trailer in [place], [place] alone and cares for himself independently. He states he has been having his ex- help with appointments because he keeps forgetting the dates and times of his appointments and gets mixed up on the date every day. Spoke with patient's ex-, Lisa, who was present in room. Per Lisa, patient has been managing appointments and living independently most of his life. She states that over the last 3-4 months, he has been forgetting the day of the week and hasnt been able to independently organize his appointments. Lisa states she has noted that his memory has been gradually worsening. She states he does sometimes make up elaborate stories and has always done that. She states he does seem more confused today than normal days. She has been helping him keep track of appointment dates and times. Lisa states she and Barrett approximately 14 years ago. Barrett does have an adult son that lives in [place], [place]. - History of Present Illness Allergies/Adverse Reactions: Allergies Penicillins Allergy (Severe, Verified 12/18/18 15:34) Can't breath Tetanus Vaccines and Toxoid [Tetanus Vaccines & Toxoid] Allergy (Severe, Verified 12/18/18 15:34) Swelling of Throat codeine Allergy (Intermediate, Verified 12/18/18 15:34) Nausea Home Medications: Home Medications Medication Instructions Recorded Last Taken Amitriptyline HCl [Elavil] 20 mg PO HS 09/02/16 11/06/17 Furosemide [Lasix] 30 mg PO DAILY 09/02/16 11/07/17 Levothyroxine Sodium [Synthroid] 50 mcg PO DAILY 09/02/16 11/07/17 Warfarin Sodium [Coumadin] 2.5 mg PO SUTUTHSA 09/02/16 11/06/17 Warfarin Sodium [Coumadin] 5 mg PO MOWEFR 09/02/16 11/04/17 Zolpidem Tartrate [Ambien] 5 mg PO HS PRN 09/02/16 11/06/17 metFORMIN HCL [Glucophage] 1,000 mg PO BID 09/02/16 11/07/17 Albuterol Sulfate [Proair Hfa] 2 puff IH QID PRN 11/09/17 Unknown Ca/D3/Mag Ox/Zinc/Valve Inserter/Az/Bor 1 each PO BID 11/09/17 Unknown [Calcium 600+D3 Plus Caplet] Diphenoxylate HCl/Atrop Sulf 2 tab PO QID PRN 11/09/17 Unknown [Lomotil] Finasteride [Proscar] 5 mg PO QAM 11/09/17 11/07/17 Metoprolol Tartrate [Lopressor] 50 mg PO BID 11/09/17 11/07/17 Tamsulosin HCl 0.4 mg PO HS 11/09/17 11/06/17 Fluticasone Propion/Salmeterol 1 puff INHALATION BID 12/18/18 Unknown [Advair 250-50 Diskus] Glimepiride [Amaryl] 2 mg PO DAILY 12/18/18 Unknown Magnesium Gluconate 250 mg PO BID 12/18/18 Unknown Promethazine HCl [Phenergan 25 mg PO BID PRN 12/18/18 Unknown (Promethazine)] Ranitidine HCl [Zantac] 300 mg PO HS 12/18/18 Unknown Ursodiol 500 mg PO HS 12/18/18 Unknown Procedures Introduction of Anti-inflammatory into Joints, Percutaneous Approach (10/25/16) Introduction of Local Anesthetic into Joints, Percutaneous Approach (10/25/16) Other partial ostectomy, scapula, clavicle, and thorax [ribs and sternum] ( 10/23/02) Rotator cuff repair (10/23/02) Review of Systems - Review of Systems Generalized/Overall Review: Present: No Symptoms Reported Neurological: Present: Other - Confusion Physical Examination - Exam Vital Signs: Vital Signs - Last Taken Temp 36.7 C 12/18/18 10:13 Pulse 80 12/18/18 10:13 Resp 16 12/18/18 10:13 BP 134/74 12/18/18 10:13 Pulse Ox 97 12/18/18 10:13 O2 Oxygen Delivery Method Room Air Constitutional: Present: Alert. Absent: Oriented x3 Neurologic: Present: alert, other - oriented to self. Disoriented to time. Looked at board for year and was unable to identify year. He states, "20" when asked about year. He is able to identify place as [facility] but later states that he is in [place] currently. Appearance: Present: appropriate appearance, impaired recent memory. Absent: appropriate insight, impaired remote memory Eye contact: Present: cooperative, other - irritable at times, particularly when discussing when he can get our of here. Thoughts: Present: no apparent hallucination, delusions - per staff, patient said he had a bag full of kittens and that he rode here on horse., other - Results and Findings: Narrative: Rule out dementia vs. delirium. CT head negative for acute process, urine drug screen negative, and urine sample negative for UTI. Per Dr. Oseguera, patient is to be admitted for further monitoring. Recommend neuropsychological testing upon discharge to further evaluate for possible dementia due to patient's and patient's ex-'s reports of progressive memory decline. This can be performed at [facility]. Lab/Microbiology results last 24 hrs: Abnormal/Pending Laboratory Last 24 HRS 12/18/18 12/18/18 12/18/18 10:45 10:45 10:45 WBC 3.2 L RBC 3.52 L Hgb 11.0 L Hct 35.6 L MCV 101.1 H MCH 31.3 H MCHC 30.9 L RDW 15.5 H Plt Count 129 L Immature Gran % (Auto) 0.60 H Lymphocytes % 15.6 L Monocytes % 19.1 H Basophils % 1.6 H Lymphocytes # 0.50 L PT 14.0 H INR (Anticoag Therapy) 1.43 H Anion Gap 14.4 H BUN 28 H Creatinine 1.80 H Est GFR (Non-Af Amer) 40 L Random Glucose 188 H TSH 4.922 H Salicylates Less than 2.8 L Acetaminophen Less than 0.2 L - Assessments/Findings (1) Change in mental status Problem: Acute
--- NOTE | 2018-12-18 15:56 | HP ---
Chief Complaint - Chief Complaint Date of Service: 12/18/18 Time of Service: 15:56 Chief Complaint: confusion History of Present Illness: Patient seen and examined with his ex- in the room. He is not sure why he is in the hospital, and is unable to list his medical problems. He reports having vomiting a couple weeks ago and a slight cough. Otherwise denies concerns. Per the ER physician, he was in the waiting room of the hospital at 5:00 this morning, stating he had ridden his horse here. His ex- reports he is having some confusion and they have been wondering about dementia. No recent medication changes. He does have an appointment tomorrow with Cassie Wilburn, and chart review shows he has an echo scheduled for pericardial effusion tomorrow at 1045. He had an increased creatinine on labs, but no other acute abnormalities. He takes warfarin, but have been unable to find the diagnosis for warfarin. INR only 1.43 today. Glucose 188, ammonia 17. Medical History (Updated 12/18/18 @ 17:12 by Deja Cisneros DO) COPD (chronic obstructive pulmonary disease) Hx of cardiac pacemaker Hypertension Pacemaker Surgical History: Surgical History (Updated 12/18/18 @ 13:46 by ABDIRASHID Wilkerson) History of tonsillectomy and adenoidectomy Hx of appendectomy Hx of cholecystectomy Hx of rotator cuff surgery Family History: Family History (Updated 12/18/18 @ 16:36 by Janis Diaz RN) Other No pertinent family history Social History: Preferred Language Italian Do you have any faith or No cultural preference? Smoking Status Former smoker Have you smoked in the past 12 No months Do you dip or chew tobacco No Abuse History No History of abuse Psych History No pertinent hx Alcohol Use none Drug Use none No Social History Section defined Review Of Systems (GEN) - Review of Systems Generalized/Overall Review: Absent: Fever EENTM: Absent: Throat Pain Respiratory: Present: Cough - mild, resolving. Absent: Shortness of Breath Cardiac: Present: Edema - feet. Absent: Chest Pain Abdominal: Present: Vomiting - a couple weeks ago. Absent: Nausea, Diarrhea Genitourinary: Present: No Symptoms Reported Neurological: Present: Other - confusion Skin: Present: No Symptoms Reported Immunizations: IMMUNIZATION HX Immunizations Up to Date Yes History of Influenza Vaccine No Hx Pneumococcal Vaccination No Allergies/Adverse Reactions: Allergies Allergy/AdvReac Type Severity Reaction Status Date / Time Penicillins Allergy Severe Verified 12/18/18 15:34 Tetanus Vaccines and Toxoid Allergy Severe Swelling Verified 12/18/18 15:34 [Tetanus Vaccines & Toxoid] of Throat codeine Allergy Intermediate Verified 12/18/18 15:34 Home Medications: HOME MEDICATIONS Amitriptyline HCl [Elavil] 20 mg PO HS 09/02/16 [Last Taken 11/06/17] Furosemide [Lasix] 30 mg PO DAILY 09/02/16 [Last Taken 11/07/17] Levothyroxine Sodium [Synthroid] 50 mcg PO DAILY 09/02/16 [Last Taken 11/07/17] Warfarin Sodium [Coumadin] 2.5 mg PO SUTUTHSA 09/02/16 [Last Taken 11/06/17] Warfarin Sodium [Coumadin] 5 mg PO MOWEFR 09/02/16 [Last Taken 11/04/17] Zolpidem Tartrate [Ambien] 5 mg PO HS PRN 09/02/16 [Last Taken 11/06/17] metFORMIN HCL [Glucophage] 1,000 mg PO BID 09/02/16 [Last Taken 11/07/17] Albuterol Sulfate [Proair Hfa] 2 puff IH QID PRN 11/09/17 [Last Taken Unknown] Ca/D3/Mag Ox/Zinc/Oven Baker/Az/Bor [Calcium 600+D3 Plus Caplet] 1 each PO BID 11/09/17 [Last Taken Unknown] Diphenoxylate HCl/Atrop Sulf [Lomotil] 2 tab PO QID PRN 11/09/17 [Last Taken Unknown] Finasteride [Proscar] 5 mg PO QAM 11/09/17 [Last Taken 11/07/17] Metoprolol Tartrate [Lopressor] 50 mg PO BID 11/09/17 [Last Taken 11/07/17] Tamsulosin HCl 0.4 mg PO HS 11/09/17 [Last Taken 11/06/17] Fluticasone Propion/Salmeterol [Advair 250-50 Diskus] 1 puff INHALATION BID 12/18/18 [Last Taken Unknown] Glimepiride [Amaryl] 2 mg PO DAILY 12/18/18 [Last Taken Unknown] Magnesium Gluconate 250 mg PO BID 12/18/18 [Last Taken Unknown] Promethazine HCl [Phenergan (Promethazine)] 25 mg PO BID PRN 12/18/18 [Last Taken Unknown] Ranitidine HCl [Zantac] 300 mg PO HS 12/18/18 [Last Taken Unknown] Ursodiol 500 mg PO HS 12/18/18 [Last Taken Unknown] Exam - Exam Vital Signs: Vital Signs - Last Taken Temp 36.8 C 12/18/18 15:13 Pulse 77 12/18/18 15:50 Resp 14 12/18/18 15:13 BP 137/78 12/18/18 15:13 Pulse Ox 96 12/18/18 15:13 Constitutional: Present: Alert, Cooperative - Reports "Tuesday" as day (it's Tuesday), and states "it looks cold as hell out here" when asked the season, Elderly ENT Exam: Present: moist mucous membranes Respiratory: Present: lungs clear, no respiratory distress, No wheezing Cardiovascular/Chest: Present: regular rate, rhythm Abdomen: Present: soft, nontender Extremity: Present: lower extremity edema - 2+ to mid lower leg bilaterally Appearance: Present: impaired recent memory Eye contact: Present: cooperative Diagnostic Studies: Abnormal Lab Results 12/18/18 12/18/18 12/18/18 Range/Units 10:45 10:45 10:45 WBC 3.2 L (4.0-10.5) K/mm3 RBC 3.52 L (4.7-6.0) M/mm3 Hgb 11.0 L (13.5-18.0) gm/dL Hct 35.6 L (42.0-52.0) % MCV 101.1 H (78-100) fl MCH 31.3 H (27-31) pg MCHC 30.9 L (32-36) g/dl RDW 15.5 H (11.5-14.0) % Plt Count 129 L (150-450) K/mm3 Immature Gran % (Auto) 0.60 H (0.001-0.429) % Lymphocytes % 15.6 L (20-51) % Monocytes % 19.1 H (0.0-9) % Basophils % 1.6 H (0.0-1.0) % Lymphocytes # 0.50 L (1.5-3.5) k/mm3 PT 14.0 H (9.1-10.7) Seconds INR (Anticoag Therapy) 1.43 H (0.92-1.08) INR Anion Gap 14.4 H (6.8-13.8) mmol/L BUN 28 H (6-23) mg/dL Creatinine 1.80 H (0.4-1.4) mg/dL Est GFR (Non-Af Amer) 40 L (60-130) mL/min Random Glucose 188 H (70-110) mg/dL TSH 4.922 H (0.358-3.74) uIU/mL Salicylates Less than 2.8 L (2.8-20.0) mg/dL Acetaminophen Less than 0.2 L (10.0-30.0) mcg/mL Laboratory Results WBC 3.2 K/mm3 (4.0-10.5) L 12/18/18 10:45 RBC 3.52 M/mm3 (4.7-6.0) L 12/18/18 10:45 Hgb 11.0 gm/dL (13.5-18.0) L 12/18/18 10:45 Hct 35.6 % (42.0-52.0) L 12/18/18 10:45 MCV 101.1 fl (78-100) H 12/18/18 10:45 MCH 31.3 pg (27-31) H 12/18/18 10:45 MCHC 30.9 g/dl (32-36) L 12/18/18 10:45 RDW 15.5 % (11.5-14.0) H 12/18/18 10:45 Plt Count 129 K/mm3 (150-450) L 12/18/18 10:45 MPV 9.9 fl (8-11.3) 12/18/18 10:45 Immature Gran % (Auto) 0.60 % (0.001-0.429) H 12/18/18 10:45 Immature Gran # (Auto) 0.02 K/mm3 (0.000-0.0310) 12/18/18 10:45 60.6 % (42-75.0) 12/18/18 10:45 15.6 % (20-51) L 12/18/18 10:45 19.1 % (0.0-9) H 12/18/18 10:45 2.5 % (0.0-3.0) 12/18/18 10:45 1.6 % (0.0-1.0) H 12/18/18 10:45 Nucleated RBC % 0.0 k/mm3 (0-1) 12/18/18 10:45 1.9 K/mm3 (1.3-6.0) 12/18/18 10:45 0.50 k/mm3 (1.5-3.5) L 12/18/18 10:45 0.6 k/mm3 (0.0-1.0) 12/18/18 10:45 0.1 k/mm3 (0.0-0.7) 12/18/18 10:45 Absolute Basophils 0.1 k/mm3 (0.0-0.1) 12/18/18 10:45 PT 14.0 Seconds (9.1-10.7) H 12/18/18 10:45 INR (Anticoag Therapy) 1.43 INR (0.92-1.08) H 12/18/18 10:45 Sodium 140 mmol/L (132-142) 12/18/18 10:45 141 mmol/L (130-142) 12/18/18 10:45 Potassium 4.6 mmol/L (3.4-4.6) 12/18/18 10:45 Chloride 102 mmol/L (97-106) 12/18/18 10:45 Carbon Dioxide 28.2 mmol/L (24-32.6) 12/18/18 10:45 14.4 mmol/L (6.8-13.8) H 12/18/18 10:45 BUN 28 mg/dL (6-23) H 12/18/18 10:45 1.80 mg/dL (0.4-1.4) H 12/18/18 10:45 Est GFR (Non-Af Amer) 40 mL/min (60-130) L 12/18/18 10:45 15.6 (9.0-21.6) 12/18/18 10:45 188 mg/dL (70-110) H 12/18/18 10:45 Calcium 8.7 mg/dL (7.9-10.9) 12/18/18 10:45 Calcium Adj for Albumin 8.9 mg/dL (8.4-10.2) 12/18/18 10:45 0.9 mg/dL (0.0-1.1) 12/18/18 10:45 AST 28 U/L (0-48) 12/18/18 10:45 ALT 21 U/L (19-67) 12/18/18 10:45 86 U/L (50-170) 12/18/18 10:45 17.0 mcmol/L (11-35) 12/18/18 10:45 0.064 ng/mL (0.00-0.10) 12/18/18 10:45 7.7 gm/dL (6.2-8.2) 12/18/18 10:45 3.4 gm/dl (3.4-5.0) 12/18/18 10:45 TSH 4.922 uIU/mL (0.358-3.74) H 12/18/18 10:45 Yellow 12/18/18 10:51 Clear (CLEAR) 12/18/18 10:51 5.5 pH (5.0-7.0) 12/18/18 10:51 Ur Specific [place] 1.010 SP.GR. (1.005-1.030) 12/18/18 10:51 Negative mg/dL (NEGATIVE) 12/18/18 10:51 Negative mg/dL (NEGATIVE) 12/18/18 10:51 Negative mg/dL (NEGATIVE) 12/18/18 10:51 Negative /ul (NEGATIVE) 12/18/18 10:51 Negative (NEGATIVE) 12/18/18 10:51 Negative mg/dl (NEGATIVE) 12/18/18 10:51 Normal EU/dl (NORMAL) 12/18/18 10:51 Ur Leukocyte Esterase Negative /ul (NEGATIVE) 12/18/18 10:51 None seen /hpf (0-5) 12/18/18 10:51 None seen /hpf (0-5) 12/18/18 10:51 Ur Epithelial Cells None seen /hpf (0-5) 12/18/18 10:51 None seen (NONE) 12/18/18 10:51 No culture indicated 12/18/18 10:51 Salicylates Less than 2.8 mg/dL (2.8-20.0) L 12/18/18 10:45 Negative (NEGATIVE) 12/18/18 10:51 Acetaminophen Less than 0.2 mcg/mL (10.0-30.0) L 12/18/18 10:45 Negative (NEGATIVE) 12/18/18 10:51 Ur Phencyclidine Scrn Negative (NEGATIVE) 12/18/18 10:51 Urine Amphetamine Negative (NEGATIVE) 12/18/18 10:51 U Benzodiazepines Scrn Negative (NEGATIVE) 12/18/18 10:51 Negative (NEGATIVE) 12/18/18 10:51 Negative (NEGATIVE) 12/18/18 10:51 Ethyl Alcohol Less than 3.0 mg/dL (0.0-10.0) 12/18/18 10:45 Assessment/Plan - Assessment/Plan (1) Confusion Assessment: Patient's reports they have been suspecting dementia. He was seen by Ana Mead earlier today, and further neuropsych testing recommended on an outpatient basis. He has an ADRIANA today, but this was also present on 12/07. Ammonia not elevated, no signs of infection. He does have Ambien on his medication list, which can cause some sleepwalking. He has had a pacemaker placed, and prolonged dysrhythmia could cause some confusion, so we will keep him on telemetry will hold most of his medications and monitor overnight for improvement. He has an echo and and appt with cardiology tomorrow, and the appt states "pericardial effusion." His PCP is outside our hospital, and I do not have access to his records. Problem: Acute (2) Change in mental status Problem: Acute Qualifiers: Altered mental status type: disorientation Qualified Code(s): R41.0 - Disorientation, unspecified (3) Acute renal injury Assessment: Creatinine of 1.8, however was 1.7 on December 07. Due to his lower extremity edema, will not administer additional fluids, but will encourage p.o. hydration. Problem: Acute (4) Edema Assessment: We will resume home 40 mg Lasix daily. Problem: Acute
[2018-12-18] MEDS ORDERED: WARFARIN SODIUM 5 MG TABLET PO SCH (18:00)
[2018-12-18] MEDS: LEVOTHYROXINE SODIUM 50 MCG TABLET PO SCH (18:30)
[2018-12-18] MEDS: GLIMEPIRIDE 2 MG TABLET PO SCH (18:30)
[2018-12-18] MEDS: FUROSEMIDE 20 MG TABLET PO SCH (18:30)
[2018-12-18] MEDS: FLUTICASONE PROPION/SALMETEROL 14 PUFF DISK.W.DEV IH SCH (20:22)
[2018-12-18] MEDS: METOPROLOL TARTRATE 50 MG TABLET PO SCH (20:22)
[2018-12-18] MEDS ORDERED: TAMSULOSIN HCL 0.4 MG CAP.SR.24H PO SCH (21:00)
[2018-12-19] MEDS ORDERED: ACETAMINOPHEN 325 MG TABLET PO PRN (01:19)
[2018-12-19] MEDS ORDERED: ACETAMINOPHEN 325 MG TABLET ONE (01:25)
--- NOTE | 2018-12-19 06:35 | DS ---
(1) Confusion Problem: Chronic (2) Change in mental status Problem: Resolved Qualifiers: Altered mental status type: disorientation Qualified Code(s): R41.0 - Disorientation, unspecified (3) Acute renal injury Problem: Acute (4) Edema Problem: Chronic Description of Stay: Patient with PMHx of pacemaker was found in the waiting room of the hospital and seemed confused, and was brought to the ED. At the time of my admission, he was not sure why he is in the hospital, and is unable to list his medical problems. He reports having vomiting a couple weeks ago and a slight cough. Otherwise denies concerns. His ex- reports he is having some confusion and they have been wondering about dementia. No recent medication changes. He takes warfarin, but have been unable to find the diagnosis for warfarin. INR only 1.43 today. Glucose 188, ammonia 17. He had an elevated creatinine of 1.8, however on labs earlier this month was 1.77, so this is likely not acute. He had some mild lower extremity edema on admission, which had improved on the day of discharge without intervention. He was evaluated by psychiatry, who recomme nds neuro psychologic testing after discharge at [facility]. They did not have openings until March, and [facility] doesn't have openings until April. His home agency suggested [place] as another possible location where he could obtain psych services. He does have an appointment on 12/19 with Cassie Wilburn, and chart review shows he has an echo scheduled for pericardial effusion on the day of discharge at 1045. His Ambien was held on discharge, as this can be a source of adverse behaviors. Procedures Performed: none Results and Findings: Lab Pending Results 12/18/18 10:45: WBC 3.2 L, RBC 3.52 L, Hgb 11.0 L, Hct 35.6 L, MCV 101.1 H, MCH 31.3 H, MCHC 30.9 L, RDW 15.5 H, Plt Count 129 L, MPV 9.9, Immature Gran % (Auto) 0.60 H, Immature Gran # (Auto) 0.02, Neutrophils % 60.6, Lymphocytes % 15.6 L, Monocytes % 19.1 H, Eosinophils % 2.5, Basophils % 1.6 H, Nucleated RBC % 0.0, Neutrophils # 1.9, Lymphocytes # 0.50 L, Monocytes # 0.6, Eosinophils # 0.1, Absolute Basophils 0.1 12/18/18 10:45: Sodium 140, Plasma Sodium 141, Potassium 4.6, Chloride 102, Carbon Dioxide 28.2, Anion Gap 14.4 H, BUN 28 H, Creatinine 1.80 H, Est GFR (Non-Af Amer) 40 L, BUN/Creatinine Ratio 15.6, Random Glucose 188 H, Calcium 8.7, Calcium Adj for Albumin 8.9, Total Bilirubin 0.9, AST 28, ALT 21, Alkaline Phosphatase 86, Troponin I 0.064, Total Protein 7.7, Albumin 3.4, TSH 4.922 H, Salicylates Less than 2.8 L, Acetaminophen Less than 0.2 L, Ethyl Alcohol Less than 3.0 12/18/18 10:45: Ammonia 17.0 12/18/18 10:45: PT 14.0 H, INR (Anticoag Therapy) 1.43 H 12/18/18 10:51: Urine Color Yellow, Urine Appearance Clear, Urine pH 5.5, Ur Spe cific [place] 1.010, Urine Protein Negative, Urine Glucose (UA) Negative, Urine Ketones Negative, Urine Blood Negative, Urine Nitrate Negative, Urine Bilirubin Negative, Urine Urobilinogen Normal, Ur Leukocyte Esterase Negative, Urine RBC None seen, Urine WBC None seen, Ur Epithelial Cells None seen, Urine Bacteria None seen, Urine Culture Comments No culture indicated 12/18/18 10:51: Urine Opiates Screen Negative, Barbiturate Screen Negative, Ur Phencyclidine Scrn Negative, Urine Amphetamine Negative, U Benzodiazepines Scrn Negative, Urine Cocaine Screen Negative, Urine Marijuana (THC) Negative Discharge Location: Home Disposition: Home Health Service Home Health Agency: [facility] Condition: Fair Discharge Activity: Activity as tolerated Discharge Diet: General/regular food Problem Oriented Discharge Instructions to Patient/Family: Confusion Additional Patient Instructions (free text): Please schedule with psychiatry at [facility] for neuropsychiatric testing. [facility] will call you with appointment. DO NOT DRIVE. Resume prior services with home health. Complete Home Medications List: Complete Home Medication List: Amitriptyline HCl [Elavil] 20 mg PO HS 09/02/16 Furosemide [Lasix] 30 mg PO DAILY 09/02/16 Levothyroxine Sodium [Synthroid] 50 mcg PO DAILY 09/02/16 Warfarin Sodium [Coumadin] 2.5 mg PO SUTUTHSA 09/02/16 Warfarin Sodium [Coumadin] 5 mg PO MOWEFR 09/02/16 metFORMIN HCL [Glucophage] 1,000 mg PO BID 09/02/16 Albuterol Sulfate [Proair Hfa] 2 puff IH QID PRN 11/09/17 Ca/D3/Mag Ox/Zinc/[employer]/Az/Bor [Calcium 600-D3 Plus Caplet] 1 each PO BID 11/09/17 Diphenoxylate HCl/Atrop Sulf [Lomotil] 2 tab PO QID PRN 11/09/17 Finasteride [Proscar] 5 mg PO QAM 11/09/17 Metoprolol Tartrate [Lopressor] 50 mg PO BID 11/09/17 Tamsulosin HCl 0.4 mg PO HS 11/09/17 Fluticasone Propion/Salmeterol [Advair 250-50 Diskus] 1 puff INHALATION BID 12/18/18 Glimepiride [Amaryl] 2 mg PO DAILY 12/18/18 Magnesium Gluconate 250 mg PO BID 12/18/18 Promethazine HCl [Phenergan (Promethazine)] 25 mg PO BID PRN 12/18/18 Ranitidine HCl [Zantac] 300 mg PO HS 12/18/18 Ursodiol 500 mg PO HS 12/18/18
[2018-12-19] MEDS: GLIMEPIRIDE 2 MG TABLET PO SCH (07:02)
[2018-12-19] MEDS: LEVOTHYROXINE SODIUM 50 MCG TABLET PO SCH (07:02)
[2018-12-19] MEDS: METOPROLOL TARTRATE 50 MG TABLET PO SCH (09:15)
[2018-12-19] MEDS: FLUTICASONE PROPION/SALMETEROL 14 PUFF DISK.W.DEV IH SCH (09:15)
[2018-12-19] MEDS: FUROSEMIDE 20 MG TABLET PO SCH (09:15)
[2018-12-19 09:41] VITALS: BP 130/79
[2018-12-19] MEDS ORDERED: WARFARIN SODIUM 2.5 MG TABLET PO SCH (17:00)
== END 2018-12-19 10:42 | disposition home health service (06) ==
LOC: ER 09:28 → MS 09:28
PROVIDERS: ADMIT Family Medicine; ATTEND Family Medicine
CPT/HCPCS: 36415; 70450; 71020; 71046; 80053; 80307; 81001; 82140; 84443; 84484; 85025; 85610; 93005; 99285; G0378; G0480